=== PATIENT | male | born 1985 | race Caucasian/White ===

== ENCOUNTER 2020-07-28 14:04 | Emergency (ER) | payer OTHER, SELFPAY ==
--- NOTE | ~2020-07-28 | XR_ITS ---
XR chest 2V DATE: 07/28/2020 14:44 INDICATION: Palpitations for 2 hours TECHNIQUE: PA and lateral views COMPARISON: None FINDINGS: Normal heart size. No hilar or mediastinal enlargement. No pulmonary infiltrate or consolid ation, pleural effusion or pulmonary vascular congestion or pneumothorax. Minimal levoscoliosis of the thoracic spine. IMPRESSION: No active cardiopulmonary disease Reviewed, dictated and finalized at location B.
[2020-07-28 14:14] VITALS: BP 151/97; PULSE 97; RESP 18; TEMP 37.1; O2SAT 100
--- NOTE | 2020-07-28 14:18 | ECG_ITS ---
Measurements Intervals [place] Rate: 84 P: 15 GA: 182 QRS: -1 QRSD: 93 T: 35 QT: 364 QTc: 430 Interpretive Statements SINUS RHYTHM WITH SINUS ARRHYTHMIA VOLTAGE CRITERIA FOR LVH MINIMAL Q WAVES- HIGH LATERAL LEADS BASELINE ARTIFACT- I, II, AVR, AVL, AVF, V1 BORDERLINE ECG Electronically Signed On 07-28-2020 14:32:39 CDT by Silver Dykes D.O.
[2020-07-28 14:48] LABS: Basophils Absolute Auto 0.1 K/mm3 (0.0-0.1); Basophils Percent Auto 0.8 % (0.2-1.2); Eosinophils Absolute Auto 0.1 K/mm3 (0-0.3); Eosinophils Percent Auto 1.4 % (0-4.4); Hematocrit 42.7 % (42.0-52.0); Hemoglobin 14.9 g/dL (14.0-18.0); Immature Granulocyte Absolute 0.02 K/mm3 (0.00-0.031); Immature Granulocyte Percent A 0.3 % (0-0.5); Lymphocytes Absolute Auto 1.43 K/mm3 (0.9-3.2); Lymphocytes Percent Auto 21.5 % (18.3-44.2); Mean Corpuscular HGB Conc 34.9 g/dl (32-36); Mean Corpuscular Hemoglobin 27.4 pg (26-34); Mean Corpuscular Volume 78.5 fl (80-100); Mean Platelet Volume 10.2 fl (7.4-10.4); Monocytes Absolute Auto 0.5 K/mm3 (0.1-0.6); Monocytes Percent Auto 7.8 % (2.6-8.5); Neutrophils Absolute Auto 4.5 K/mm3 (1.3-6.7); Neutrophils Percent Auto 68.2 % (45.5-73.1); Platelet Count Result 318 k/mm3 (150-375); Red Blood Count 5.44 M/mm3 (4.6-6.20); Red Cell Distribution Width 13.1 % (11.5-14.5); White Blood Count 6.6 K/mm3 (4.5-10.0)
[2020-07-28 14:52] LABS: INR 0.9; Prothrombin Time 12.8 Seconds (11.1-14.7)
[2020-07-28 14:53] LABS: Partial Thromboplastin Time 24.1 SECONDS (22.3-36.8)
[2020-07-28 14:55] LABS: Anion Gap 7 mmol/L (8-16); Blood Urea Nitrogen 16 mg/dL (9-20); Calcium 9.7 mg/dL (8.4-10.2); Carbon Dioxide 29 mmol/L (22-30); Chloride 104 mmol/L (98-107); Estimated CRCL calculation 140 ml/min; Estimated Glomerular Filt Rate > 60; Glucose 127 mg/dL (75-110); Potassium 4.1 mmol/L (3.4-5.0); Sodium 140 mmol/L (137-145)
[2020-07-28 15:06] LABS: Troponin I < 0.012 ng/mL (0.000-0.034)
--- NOTE | 2020-07-28 16:31 | ED.ARRPALP ---
HPI - Arrhythmia/Palpitations General Chief Complaint: Arrhythmia/Palpitations Stated Complaint: elevated heart rate Time Seen by Provider: 07/28/20 15:55 Source: patient Mode of arrival: ambulatory Limitations: no limitations History of Present Illness HPI narrative: This is a 34 year old male who presents for evaluation of palpitations. He states he has been under increased stress at work and with some family issues. Today, approximately around 11 am he developed palpitations. He reports feeling his heart racing and he reports his resting HR was 100 or higher for 2 hours. He denies associated chest pain, sob, nausea, vomiting or dizziness. He denies history of cardiac disease. He notes that while he has been in waiting room his heart rate has decreased. He drank 2 cups of coffee today but he denies any medications or supplements. He also reports he is not sleeping well due to stress and an baby. Review of Systems Review of Systems: All systems reviewed & are unremarkable except as noted in HPI and below PMFSH Past Medical History Medical History (Updated 07/28/20 @ 17:20 by Karen Silverio MD) Patient denies medical problems Surgical History Surgical History (Updated 07/28/20 @ 17:15 by Karen Silverio MD) No pertinent past surgical history Social History Social History (Updated 07/28/20 @ 17:15 by Karen Silverio MD) Smoking status: Never smoker Alcohol intake: never Substance use: never Gender identity (if verbalized by the patient): Male Exam Const: General: no acute distress and alert Orientation/consciousness: patient oriented x3 Eyes: Pupils: Equal, round and reactive pupils present EOM: EOMs intact bilaterally Chest: Chest palpation & inspection: normal inspection of the chest Resp: Effort & Inspection: normal respiratory effort and no retractions Auscultation: clear to auscultation bilaterally Cardio: Rate: regular rate Rhythm: regular rhythm Heart sounds: no murmurs GI: GI Palp: Yes Soft to palpation, No Tenderness to palpation present (GI) and No Guarding due to palpation present (GI) Auscultation: normal bowel sounds Skin: General skin exam: normal color Rashes: no rashes Neuro: General: patient oriented x3 and moves all extremities Extrem: General: normal to inspection and no pedal edema Psych: Mental Status: mental status grossly normal Affect: normal affect Course Reevaluation(s) Reevaluation #1: Patient has no complaints at this time. HR is 81. he has occasional PACs on monitor. BP is 157/108 which may be anxiety. I discussed with him that he will need to follow up . Labs unremarkable. HE declined IVF due to like liking needle sticks. Date: 07/28/20 Time: 17:16 Vital Signs Vital signs: Vital Signs Temperature 98.8 F 07/28/20 14:14 Pulse Rate 97 07/28/20 14:14 Respiratory Rate 18 07/28/20 14:14 Blood Pressure 151/97 H 07/28/20 14:14 Pulse Oximetry 100 07/28/20 14:14 Temperature 98.8 F 07/28/20 14:14 Pulse Rate 97 07/28/20 14:14 Respiratory Rate 18 07/28/20 14:14 Blood Pressure 151/97 H 07/28/20 14:14 Pulse Oximetry 100 07/28/20 14:14 MDM - Arrhythmia/Palpitations Lab Data Attestation: I reviewed the patient's lab results. Result diagrams: 07/28/20 14:35 07/28/20 14:35 Labs: Lab Results 07/28/20 07/28/20 07/28/20 Range/Units 14:35 14:35 14:35 WBC 6.6 (4.5-10.0) K/mm3 RBC 5.44 (4.6-6.20) M/mm3 Hgb 14.9 (14.0-18.0) g/dL Hct 42.7 (42.0-52.0) % MCV 78.5 L (80-100) fl MCH 27.4 (26-34) pg MCHC 34.9 (32-36) g/dl RDW 13.1 (11.5-14.5) % Plt Count 318 (150-375) k/mm3 MPV 10.2 (7.4-10.4) fl Immature Gran % (Auto) 0.3 (0-0.5) % Neut % (Auto) 68.2 (45.5-73.1) % Lymph % (Auto) 21.5 (18.3-44.2) % [place] % (Auto) 7.8 (2.6-8.5) % Eos % (Auto) 1.4 (0-4.4) % Baso % (Auto) 0.8 (0.2-1.2) % Lymph #
[2020-07-28 16:50] LABS: Magnesium 1.9 mg/dL (1.6-2.3)
[2020-07-28 16:53] LABS: D Dimer 0.27 ug/mL (<0.48)
[2020-07-28 17:02] LABS: Amphetamine Screen Urine Negative (Negative); Barbiturate Screen Urine Negative (Negative); Benzodiazepines Screen Urine Negative (Negative); Cannabinoid Screen Urine Negative (Negative); Cocaine Screen Urine Negative (Negative); Methadone Screen Urine Negative (Negative); Opiate Screen Urine Negative (Negative); Phencyclidine Screen Urine Negative (Negative)
== END 2020-07-28 17:45 | disposition home or self-care (01) ==
PROVIDERS: Emergency Medicine; Emergency Provider General Practice
DX: R00.2 Palpitations (principal); R94.31 Abnormal electrocardiogram [ECG] [EKG]
CPT/HCPCS: 36415; 71046; 80048; 80307; 83735; 84484; 85025; 85380; 85610; 85730; 93005; 99284